=== PATIENT | male | born 1965 | race African-American/Black ===

== ENCOUNTER 2022-05-10 11:07 | Emergency (ER) | payer MEDICARE, MEDICAID ==
[~2022-05-10] VITALS: Ht 172.7 cm; Wt 124.8 kg
[2022-05-10] MEDS ORDERED: HOLD METFORMIN - RECEIVED CONTRAST 20 ML VIAL IV SCH (11:45)
[2022-05-10] MEDS ORDERED: NS 100 ML (IVPB) BAG IV ONE (11:45)
[2022-05-10] MEDS ORDERED: IOHEXOL 350 MG/ML 100 ML (OMNIPAQUE 350) VIAL IV ONE (11:45)
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
--- NOTE | 2022-05-10 12:33 | Diagnostic Imaging Report ---
Indication: Leg pain. 2 view left femur showed no fracture or bony destructive process. There is arthritis to the knee and hip. No articular collapse. Impression: Degenerative changes but no acute or posttraumatic femoral pathology apparent. Dictated by: Dictated on workstation # [id number]
--- NOTE | 2022-05-10 12:33 | Diagnostic Imaging Report ---
INDICATION: Leg pain. Two-view left tibia-fibula show no fracture, dislocation or acute bony irregularity. No gas or foreign body. IMPRESSION: No acute appearing abnormality. Dictated by: Dictated on workstation # [id number]
--- NOTE | 2022-05-10 12:42 | Diagnostic Imaging Report ---
INDICATION: foot pain. TECHNIQUE: 3 views of the left foot. CORRELATION STUDY: None. FINDINGS: There is no acute fracture. There are tjnwnlpk-ac-ewpvdefi degenerative changes at the first tarsometatarsal articulations which include joint space narrowing, flattening and loss of the normal contour as well as osteophyte formation. Remaining joint spaces are otherwise fairly well maintained. Pes planus alignment. Prominent plantar calcaneal spur. Asymmetric soft tissue edema over the medial aspect of the foot. IMPRESSION: 1. Negative for acute findings of the foot. Soft tissue edema is suggested medially. Dictated by: Dictated on workstation # [id number]
[2022-05-10 13:02] LABS: AMPHETAMINE SCREEN, URINE NEGATIVE (NEGATIVE); BARBITURATE SCREEN URINE NEGATIVE (NEGATIVE); BENZODIAZEPINES SCREEN URINE NEGATIVE (NEGATIVE); CANNABINOID SCREEN, URINE POSITIVE (NEGATIVE); COCAINE SCREEN URINE NEGATIVE (NEGATIVE); METHADONE STAT NEGATIVE (NEGATIVE); OPIATE SCREEN URINE NEGATIVE (NEGATIVE); OXYCODONE STAT POSITIVE (NEGATIVE); PROPOXYPHENE STAT NEGATIVE (NEGATIVE); TRICYCLIC ANTIDEPRESSANTS SCRE NEGATIVE (NEGATIVE)
[2022-05-10 13:05] LABS: BASOPHILS # (AUTO) 0.1 10^3/uL (0.0-0.1); BASOPHILS % (AUTO) 1 % (0-10); EOSINOPHILS # (AUTO) 0.1 10^3/uL (0.0-0.3); EOSINOPHILS % (AUTO) 2 % (0-10); HEMATOCRIT 42 % (40-54); HEMOGLOBIN 14.1 g/dL (13.3-17.7); LYMPHOCYTES # (AUTO) 2.2 10^3/uL (1.0-4.0); LYMPHOCYTES % (AUTO) 31 % (12-44); MEAN CORPUSCULAR HEMOGLOBIN 27 pg (25-34); MEAN CORPUSCULAR HGB CONC 33 g/dL (32-36); MEAN CORPUSCULAR VOLUME 82 fL (80-99); MEAN PLATELET VOLUME 10.3 fL (9.0-12.2); MONOCYTES # (AUTO) 0.7 10^3/uL (0.0-1.0); MONOCYTES % (AUTO) 10 % (0-12); NEUTROPHILS # (AUTO) 4.1 10^3/uL (1.8-7.8); NEUTROPHILS % (AUTO) 57 % (42-75); PLATELET COUNT 350 10^3/uL (130-400); WHITE BLOOD COUNT 7.2 10^3/uL (4.3-11.0)
[2022-05-10 13:23] LABS: ALANINE AMINOTRANSFERASE 18 U/L (0-55); ALBUMIN 3.8 GM/DL (3.2-4.5); ALKALINE PHOSPHATASE 69 U/L (40-136); BILIRUBIN,TOTAL 0.4 MG/DL (0.1-1.0); BUN/CREATININE RATIO 7; CALCIUM 9.2 MG/DL (8.5-10.1); CARBON DIOXIDE 21 MMOL/L (21-32); CHLORIDE 108 MMOL/L (98-107); CREATININE SERUM 1.16 MG/DL (0.60-1.30); GFR ESTIMATED 73; GLUCOSE 98 MG/DL (70-105); POTASSIUM 3.8 MMOL/L (3.6-5.0); SODIUM 139 MMOL/L (135-145); TOTAL PROTEIN 6.9 GM/DL (6.4-8.2)
[2022-05-10] MEDS ORDERED: KETOROLAC 30 MG/ML VIAL IVP ONE (14:00)
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
[2022-05-10 14:13] VITALS: BP 158/86
== END 2022-05-10 14:13 | disposition home or self-care (01) ==
LOC: EDBD 11:09 → ER 11:09
DX: M25.552 Pain in left hip (principal); M54.50 Low back pain, unspecified; M79.605 Pain in left leg; F17.210 Nicotine dependence, cigarettes, uncomplicated; Z28.310 Unvaccinated for COVID-19; V03.90XA Pedestrian on foot injured in collision with car, pick-up truck or van, unspecified whether traffic or nontraffic accident, initial encounter; Y92.481 Parking lot as the place of occurrence of the external cause
CPT/HCPCS: 70450; 71260; 72125; 73552; 73590; 73630; 74177; 80053; 80306; 85025; 99284; G0480; 36415; 80320

== ENCOUNTER 2022-06-05 06:48 | Emergency (ER) | payer MEDICARE, MEDICAID ==
[~2022-06-05] VITALS: Ht 175.3 cm; Wt 135.2 kg
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
[2022-06-05] MEDS ORDERED: methylPREDNISolone 40 MG/ML (DEPO MEDROL) VIAL IM ONE (07:30)
[2022-06-05] MEDS ORDERED: oxyCODONE/APAP 5/325MG (PERCOCET 5) TABLET PO ONE (07:30)
[2022-06-05] MEDS ORDERED: oxyCODONE/APAP 5/325MG (PERCOCET 5) TABLET ONE (08:00)
[2022-06-05 08:38] VITALS: BP 130/80
== END 2022-06-05 08:38 | disposition home or self-care (01) ==
LOC: EDUNIT# 06:48 → ER 06:49
DX: M54.42 Lumbago with sciatica, left side (principal); Z91.14 Patient's other noncompliance with medication regimen; Z79.1 Long term (current) use of non-steroidal anti-inflammatories (NSAID)
CPT/HCPCS: 99284

== ENCOUNTER 2022-06-17 01:22 | Emergency (ER) | payer MEDICARE, MEDICAID ==
[~2022-06-17] VITALS: Ht 175.3 cm; Wt 126.1 kg
[2022-06-17 01:44] LABS: BASOPHILS # (AUTO) 0.1 10^3/uL (0.0-0.1); BASOPHILS % (AUTO) 1 % (0-10); EOSINOPHILS # (AUTO) 0.1 10^3/uL (0.0-0.3); EOSINOPHILS % (AUTO) 1 % (0-10); HEMATOCRIT 42 % (40-54); HEMOGLOBIN 14.1 g/dL (13.3-17.7); LYMPHOCYTES # (AUTO) 3.1 10^3/uL (1.0-4.0); LYMPHOCYTES % (AUTO) 32 % (12-44); MEAN CORPUSCULAR HEMOGLOBIN 27 pg (25-34); MEAN CORPUSCULAR HGB CONC 33 g/dL (32-36); MEAN CORPUSCULAR VOLUME 82 fL (80-99); MEAN PLATELET VOLUME 9.8 fL (9.0-12.2); MONOCYTES # (AUTO) 0.7 10^3/uL (0.0-1.0); MONOCYTES % (AUTO) 7 % (0-12); NEUTROPHILS # (AUTO) 5.7 10^3/uL (1.8-7.8); NEUTROPHILS % (AUTO) 59 % (42-75); PLATELET COUNT 432 10^3/uL (130-400); WHITE BLOOD COUNT 9.7 10^3/uL (4.3-11.0)
--- NOTE | 2022-06-17 01:50 | ED General ---
General Chief Complaint: Exposure Stated Complaint: SOB,VOMITING Source of Information: Patient (DIFFICULT HISTORIAN AND SPEECH PATTERN DIFFICULT TO UNDERSTAND) History of Present Illness Date Seen by Provider: Jun 17, 2022 Time Seen by Provider: 01:24 Initial Comments PT ARRIVES VIA EMS FROM HOME STATES HE WAS CLEANING THE KITCHEN FOR ABOUT AN HOUR WITH BLEACH AND BREATHED IN THE FUMES THIS OCCURRED AROUND 8 PM TONIGHT STATES HE FEELS SHORT OF BREATH AND HE VOMITED TWICE NO OTHER SYMPTOMS NO COUGH NO DIARRHEA NO ABDOMINAL PAIN NO HEADACHE NO FEVER PT SMOKES 1 PPD OF CIGARETTES, ALSO SMOKES MARIJUANA DRINKS ALCOHOL OCCASIONALLY, DENIES RECENT USE. PT STATES HIS ONLY MEDICAL PROBLEM IS BACK PAIN PCP IN [place] Allergies and Home Medications Allergies Coded Allergies: No Allergy Information Available (Unverified , 05/10/22) Patient Home Medication List Home Medication List Reviewed: Yes Review of Systems Review of Systems Constitutional: no symptoms reported EENTM: no symptoms reported Respiratory: see HPI; No cough; short of breath Cardiovascular: no symptoms reported; No chest pain Gastrointestinal: see HPI; No abdominal pain, No diarrhea; nausea, vomiting Genitourinary: no symptoms reported Musculoskeletal: back pain (CHRONIC BACK PAIN UNCHANGED) Psychiatric/Neurological: No Symptoms Reported Hematologic/Lymphatic: No Symptoms Reported Immunological/Allergic: no symptoms reported Past Fmalftw-Prxsex-Srftaz Hx Patient Social History Tobacco Use?: Yes Tobacco type used: Cigarettes Smoking Status: Current Everyday Smoker Substance use?: Yes Substance type: Marijuana Substance frequency: Couple times a week Alcohol Use?: Yes Alcohol Frequency: Once in a while Immunizations Up To Date First/Initial COVID19 Vaccinat: 2020 Second COVID19 Vaccination Brayan: 2020 Third COVID19 Vaccination Date: N/A Past Medical History Surgeries: Yes (I&D OF ABSCESS ON BACK/BUTTOCKS) Respiratory: No Cardiac: Yes Hypertension Neurological: No Reproductive Disorders: No Genitourinary: No Gastrointestinal: No Musculoskeletal: Yes Chronic Back Pain Endocrine: Yes (OBESE) Diabetes, Non-Insulin dep HEENT: No Cancer: No Psychosocial: No Integumentary: Yes (I&D OF ABSCESS) Blood Disorders: No Physical Exam Vital Signs Vital Signs - First Documented 06/17/22 01:24 Temp 37.2 Pulse 100 Resp 20 B/P (MAP) 134/99 (111) Pulse Ox 96 O2 Delivery Room Air Capillary Refill : Height, Weight, BMI Height: '" Weight: lbs. oz. kg; 43.00 BMI Method: General Appearance: No Apparent Distress, WD/WN, Obese, Other (DOES NOT APPEAR TO BE IN ANY DISCOMFORT OR DISTRESS. NO COUGH OR DYSPNEA) HEENT: PERRL/EOMI Neck: Normal Inspection Respiratory: Normal Breath Sounds, No Accessory Muscle Use, No Respiratory Distress Cardiovascular: Regular Rate, Rhythm, No Edema, No Murmur Gastrointestinal: Non Tender, Soft Extremity: Normal Inspection, No Calf Tenderness, No Pedal Edema Neurologic/Psychiatric: Alert, Oriented x3, No Motor/Sensory Deficits, outside rigger II- XII Norm as Tested Skin: Normal Color (PT IS BLACK), Warm/Dry Progress/Results/Core Measures Suspected Sepsis SIRS Temperature: Pulse: Respiratory Rate: Laboratory Tests 06/17/22 01:32: White Blood Count 9.7 Blood Pressure / Mean: Laboratory Tests 06/17/22 01:32: Creatinine 1.23, Platelet Count 432H, Total Bilirubin 0.6 Results/Orders Lab Results Laboratory Tests Test 06/17/22 01:32 06/17/22 02:26 Range/Units White Blood Count 9.7 4.3-11.0 10^3/uL Red Blood Count 5.18 4.30-5.52 10^6/uL Hemoglobin 14.1 13.3-17.7 g/dL Hematocrit 42 40-54 % Mean Corpuscular Volume 82 80-99 fL Mean Corpuscular Hemoglobin 27 25-34 pg Mean Corpuscular Hemoglobin Concent 33 32-36 g/dL Red Cell Distribution Width 14.9 H 10.0-14.5 % Platelet Count 432 H 130-400 10^3/uL Mean Platelet Volume 9.8 9.0-12.2 fL Immature Granulocyte % (Auto) 0 % Neutrophils (%) (Auto) 59 42-75 % Lymphocytes (%) (Auto) 32 12-44 % Monocytes (%) (Auto) 7 0-12 % Eosinophils (%) (Auto) 1 0-10 % Basophils (%) (Auto) 1 0-10 % Neutrophils # (Auto) 5.7 1.8-7.8 10^3/uL Lymphocytes # (Auto) 3.1 1.0-4.0 10^3/uL Monocytes # (Auto) 0.7 0.0-1.0 10^3/uL Eosinophils # (Auto) 0.1 0.0-0.3 10^3/uL Basophils # (Auto) 0.1 0.0-0.1 10^3/uL Immature Granulocyte # (Auto) 0.0 0.0-0.1 10^3/uL Sodium Level 139 135-145 MMOL/L Potassium Level 3.6 3.6-5.0 MMOL/L Chloride Level 104 98-107 MMOL/L Carbon Dioxide Level 19 L 21-32 MMOL/L Anion Gap 16 H 5-14 MMOL/L Blood Urea Nitrogen 13 7-18 MG/DL Creatinine 1.23 0.60-1.30 MG/DL Estimat Glomerular Filtration Rate 70 BUN/Creatinine Ratio 11 Glucose Level 118 H 70-105 MG/DL Calcium Level 9.6 8.5-10.1 MG/DL Corrected Calcium 9.5 8.5-10.1 MG/DL Magnesium Level 1.7 1.6-2.4 MG/DL Total Bilirubin 0.6 0.1-1.0 MG/DL Aspartate Amino Transf (AST/SGOT) 21 5-34 U/L Alanine Aminotransferase (ALT/SGPT) 19 0-55 U/L Alkaline Phosphatase 70 40-136 U/L Troponin I < 0.028 <0.028 NG/ML B-Type Natriuretic Peptide < 10.0 <100.0 PG/ML Total Protein 7.7 6.4-8.2 GM/DL Albumin 4.1 3.2-4.5 GM/DL Amylase Level 66 25-125 U/L Lipase 12 8-78 U/L Serum Alcohol < 10 <10 MG/DL Influenza Type A (RT-PCR) Not Detected Not Detecte Influenza Type B (RT-PCR) Not Detected Not Detecte SARS-CoV-2 RNA (RT-PCR) Not Detected Not Detecte Urine Color YELLOW Urine Clarity CLEAR Urine pH 5.5 5-9 Urine Specific [place] 1.020 1.016-1.022 Urine Protein NEGATIVE NEGATIVE Urine Glucose (UA) NEGATIVE NEGATIVE Urine Ketones NEGATIVE NEGATIVE Urine Nitrite NEGATIVE NEGATIVE Urine Bilirubin NEGATIVE NEGATIVE Urine Urobilinogen 0.2 < = 1.0 MG/DL Urine Leukocyte Esterase NEGATIVE NEGATIVE Urine RBC (Auto) NEGATIVE NEGATIVE Urine RBC NONE /HPF Urine WBC NONE /HPF Urine Crystals NONE /LPF Urine Bacteria NEGATIVE /HPF Urine Casts NONE /LPF Urine Mucus NEGATIVE /LPF Urine Culture Indicated NO My Orders Orders - ALISON AGUIRRE DO Ed Iv/Invasive Line Start (06/17/22 01:37) Ekg Tracing (06/17/22 01:37) Monitor-Rhythm Ecg Trace Only (06/17/22 01:37) Alcohol (06/17/22 01:37) Amylase (06/17/22 01:37) Bnp Diane (06/17/22 01:37) Cbc With Automated Diff (06/17/22 01:37) Comprehensive Metabolic Panel (06/17/22 01:37) Drug Screen Stat (Urine) (06/17/22 01:37) Lipase (06/17/22 01:37) Magnesium (06/17/22 01:37) Ua Culture If Indicated (06/17/22 01:37) Troponin I Diane (06/17/22 01:37) Covid 19 Inhouse Test (06/17/22 01:38) Influenza A And B By Pcr (06/17/22 01:38) Isolation Central Supply Req (06/17/22 01:38) Chest 1 View, Ap/Pa Only (06/17/22 01:39) Vital Signs/I&O 06/17/22 01:24 Temp 37.2 Pulse 100 Resp 20 B/P (MAP) 134/99 (111) Pulse Ox 96 O2 Delivery Room Air Capillary Refill : Progress Note : Progress Note NO COUGH NO DYSPNEA NO HYPOXIA NO GI SYMPTOMS VITALS STABLE NO SYMPTOMS OF ANY KIND DURING ER STAY SLEPT/RESTED QUIETLY FOR ENTIRE ER STAY ECG Initial ECG Impression Date: Jun 17, 2022 Initial ECG Impression Time: 02:07 Initial ECG Rate: 92 Initial ECG Rhythm: Normal Sinus Comment ATRIAL PACED Diagnostic Imaging Comments CXR--VERY POOR INSPIRATION, NON-DIAGNOSTIC. PENDING RADIOLOGIST REVIEW Reviewed: Reviewed by Me Departure Impression Primary Impression: ALLEGED BLEACH FUME EXPOSURE Disposition: HOME, SELF-CARE Condition: Stable Departure-Patient Inst. Decision time for Depature: 02:30 Referrals: NO,LOCAL PHYSICIAN (PCP) Primary Care Physician Patient Instructions: ACCIDENTAL INGESTION NON-TOXIC Add. Discharge Instructions: HOME, REST TAKE YOUR REGULAR MEDICATIONS PRESCRIBED AVOID BEING EXPOSED TO ANY KIND OF FUMES FOR ANY LENGTH OF TIME RETURN TO ER IF PROBLEMS All discharge instructions reviewed with patient and/or family. Voiced understanding. ALISON AGUIRRE DO Jun 17, 2022 01:50
[2022-06-17 01:53] LABS: ALBUMIN 4.1 GM/DL (3.2-4.5); CHLORIDE 104 MMOL/L (98-107); POTASSIUM 3.6 MMOL/L (3.6-5.0); SODIUM 139 MMOL/L (135-145)
[2022-06-17 01:54] LABS: AMYLASE 66 U/L (25-125); CALCIUM 9.6 MG/DL (8.5-10.1)
[2022-06-17 01:55] LABS: GLUCOSE 118 MG/DL (70-105); TOTAL PROTEIN 7.7 GM/DL (6.4-8.2)
[2022-06-17 01:56] LABS: CARBON DIOXIDE 19 MMOL/L (21-32)
[2022-06-17 01:57] LABS: BILIRUBIN,TOTAL 0.6 MG/DL (0.1-1.0)
[2022-06-17 01:58] LABS: ALKALINE PHOSPHATASE 70 U/L (40-136)
[2022-06-17 01:59] LABS: CREATININE SERUM 1.23 MG/DL (0.60-1.30); GFR ESTIMATED 70
[2022-06-17 02:00] LABS: BUN/CREATININE RATIO 11
[2022-06-17 02:01] LABS: MAGNESIUM 1.7 MG/DL (1.6-2.4)
[2022-06-17 02:02] LABS: ALANINE AMINOTRANSFERASE 19 U/L (0-55); LIPASE 12 U/L (8-78)
[2022-06-17 02:31] LABS: BILIRUBIN,URINE NEGATIVE (NEGATIVE); CLARITY,URINE CLEAR; COLOR,URINE YELLOW; GLUCOSE, URINE (UA) NEGATIVE (NEGATIVE); KETONES,URINE NEGATIVE (NEGATIVE); LEUKOCYTE ESTERASE ,URINE NEGATIVE (NEGATIVE); NITRITE,URINE NEGATIVE (NEGATIVE); PH,URINE 5.5 (5-9); PROTEIN,URINE NEGATIVE (NEGATIVE)
[2022-06-17 02:41] LABS: BACTERIA,URINE NEGATIVE /HPF
[2022-06-17 02:51] LABS: AMPHETAMINE SCREEN, URINE NEGATIVE (NEGATIVE); BARBITURATE SCREEN URINE NEGATIVE (NEGATIVE); BENZODIAZEPINES SCREEN URINE NEGATIVE (NEGATIVE); CANNABINOID SCREEN, URINE POSITIVE (NEGATIVE); COCAINE SCREEN URINE NEGATIVE (NEGATIVE); METHADONE STAT NEGATIVE (NEGATIVE); OPIATE SCREEN URINE NEGATIVE (NEGATIVE); OXYCODONE STAT POSITIVE (NEGATIVE); PROPOXYPHENE STAT NEGATIVE (NEGATIVE); TRICYCLIC ANTIDEPRESSANTS SCRE NEGATIVE (NEGATIVE)
[2022-06-17 03:00] VITALS: BP 126/79
--- NOTE | 2022-06-17 06:03 | Diagnostic Imaging Report ---
EXAMINATION: Chest 1 view HISTORY: DYSPNEA COMPARISON: None available. FINDINGS: Heart size and pulmonary vasculature are normal. There are low lung volumes without consolidation, pleural effusion, or pneumothorax. The osseous structures are intact. IMPRESSION: 1. No acute radiographic abnormality in the chest. Dictated by: Dictated on workstation # [id number]
== END 2022-06-17 03:00 | disposition home or self-care (01) ==
LOC: EDUNIT# 01:22 → ER 01:23
DX: T59.4X1A Toxic effect of chlorine gas, accidental (unintentional), initial encounter (principal); E66.9 Obesity, unspecified; F17.210 Nicotine dependence, cigarettes, uncomplicated; Z68.41 Body mass index [BMI] 40.0-44.9, adult; Z20.822 Contact with and (suspected) exposure to COVID-19
CPT/HCPCS: 71045; 80053; 80306; 81000; 82150; 83690; 83735; 83880; 84484; 85025; 87636; 93005; 93041; 99284; G0480; 36415; 80320

== ENCOUNTER 2022-07-01 09:08 | Emergency (ER) | payer MEDICARE, MEDICAID ==
[~2022-07-01] VITALS: Ht 175 cm; Wt 124.7 kg
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
[2022-07-01] MEDS ORDERED: oxyCODONE/APAP 5/325MG (PERCOCET 5) TABLET PO ONE ×2 (10:00→11:00)
--- NOTE | 2022-07-01 10:16 | Diagnostic Imaging Report ---
PROCEDURE: CT thoracic and lumbar spine without contrast. TECHNIQUE: Multiple contiguous axial images were obtained through the thoracic and lumbar spine without the use of intravenous contrast. Sagittal and coronal reformations were then performed. All CT scans use one or more of the following dose optimizing techniques: automated exposure control, MA and/or KvP adjustment based on a patient size and exam type, or iterative reconstruction. INDICATION: Back pain as well as left hip and leg pain. CT thoracic spine: There is normal thoracic kyphotic curvature. There is very slight right convexity scoliotic curvature. Vertebral body heights are well-maintained. No acute compression fracture is seen. There is some mild generalized thoracic spondylosis. Paraspinous tissues are unremarkable. CT lumbar spine: Curvature and alignment of the lumbar spine is normal. There is degenerative disc disease L4-L5 and L5-S1 levels, with disc space narrowing and marginal osteophyte formation. No fractures are seen. Paraspinous tissues are unremarkable. IMPRESSION: Lower lumbar spondylosis. No acute bony abnormality is detected. Dictated by: Dictated on workstation # [id number]
[2022-07-01] MEDS ORDERED: methylPREDNISolone 40 MG/ML (DEPO MEDROL) VIAL IM ONE (10:30)
[2022-07-01 11:19] VITALS: BP 112/69
== END 2022-07-01 11:19 | disposition home or self-care (01) ==
LOC: EDUNIT# 09:08 → ER 09:09
DX: M54.41 Lumbago with sciatica, right side (principal); E66.9 Obesity, unspecified; Z68.41 Body mass index [BMI] 40.0-44.9, adult
CPT/HCPCS: 72128; 72131; 96372

== ENCOUNTER 2022-08-24 18:44 | Emergency (ER) | payer MEDICARE, MEDICAID ==
[~2022-08-24] VITALS: Ht 175 cm; Wt 124.0 kg
[2022-08-24 19:05] LABS: BASOPHILS % (AUTO) 1 % (0-10); EOSINOPHILS # (AUTO) 0.2 10^3/uL (0.0-0.3); EOSINOPHILS % (AUTO) 3 % (0-10); HEMATOCRIT 42 % (40-54); LYMPHOCYTES # (AUTO) 2.3 10^3/uL (1.0-4.0); LYMPHOCYTES % (AUTO) 35 % (12-44); MEAN CORPUSCULAR HEMOGLOBIN 28 pg (25-34); MEAN CORPUSCULAR HGB CONC 34 g/dL (32-36); MEAN CORPUSCULAR VOLUME 82 fL (80-99); MEAN PLATELET VOLUME 10.1 fL (9.0-12.2); MONOCYTES # (AUTO) 1.2 10^3/uL (0.0-1.0); MONOCYTES % (AUTO) 19 % (0-12); NEUTROPHILS # (AUTO) 2.8 10^3/uL (1.8-7.8); NEUTROPHILS % (AUTO) 43 % (42-75); PLATELET COUNT 402 10^3/uL (130-400); WHITE BLOOD COUNT 6.5 10^3/uL (4.3-11.0)
--- NOTE | 2022-08-24 19:13 | Diagnostic Imaging Report ---
EXAMINATION: Chest 1 view. HISTORY: Shortness of breath. Cough. COMPARISON: 06/17/2022. FINDINGS: There is cardiomegaly with central pulmonary vascular congestion. No focal consolidation. No large pleural effusion or pneumothorax. IMPRESSION: Cardiomegaly with central pulmonary vascular congestion. Dictated by: Dictated on workstation # [id number]
[2022-08-24 19:21] LABS: ALBUMIN 3.8 GM/DL (3.2-4.5); BILIRUBIN,TOTAL 0.3 MG/DL (0.1-1.0); CREATININE SERUM 1.05 MG/DL (0.60-1.30); TOTAL PROTEIN 7.3 GM/DL (6.4-8.2)
[2022-08-24] MEDS ORDERED: BENZONATATE 100 MG (TESSALON) CAPSULE PO SCH (21:15)
[2022-08-24] MEDS ORDERED: BENZ100C18 PO ×2 (21:21→21:34)
--- NOTE | 2022-08-24 21:21 | ED General ---
General Chief Complaint: Respiratory Problems Stated Complaint: CHEST CONGESTION/COUGH/SOA/ASTHMA Nursing Triage Note: PT CO OF SOA, DENIES FEVER, COUGH STARTED 2 DAYS AGO. Source of Information: Patient Exam Limitations: No Limitations (BENITO MADDEN APRN) History of Present Illness Date Seen by Provider: Aug 24, 2022 Time Seen by Provider: 19:00 Initial Comments Patient is a 52-year-old male who presents to the emergency department with shortness of air, cough, general malaise, body aches, and headache that began 2 days ago. Patient denies any known sick contacts. Patient states he has a history of COPD. He has an inhaler he has been using at home with minimal improvement. Denies any fever. States his cough is productive with white/yellow sputum. (BENITO MADDEN APRN) Allergies and Home Medications Allergies Coded Allergies: No Known Drug Allergies (Unverified , 08/24/22) Patient Home Medication List Home Medication List Reviewed: Yes (BENITO MADDEN APRN) Benzonatate (Tessalon Perles) 100 Mg Capsule, 200 MG PO Q8H Prescribed by: Benito Madden on 08/24/222133 Last Action: New Order Discontinued Medications Benzonatate (Tessalon Perles) 100 Mg Capsule, 200 MG PO Q8H PRN for COUGH Prescribed by: Benito Madden on 08/24/222120 Last Action: Discontinued Review of Systems Review of Systems Constitutional: see HPI, malaise EENTM: no symptoms reported Respiratory: see HPI, cough Cardiovascular: no symptoms reported Gastrointestinal: no symptoms reported Genitourinary: no symptoms reported Musculoskeletal: no symptoms reported Skin: no symptoms reported Psychiatric/Neurological: No Symptoms Reported Hematologic/Lymphatic: No Symptoms Reported (BENITO MADDEN APRN) Past Dgizcdm-Dxzcba-Nyvyqq Hx Patient Social History Tobacco Use?: Yes Tobacco type used: Cigarettes Smoking Status: Current Everyday Smoker Substance use?: Yes Substance type: Marijuana Substance frequency: Rarely Alcohol Use?: No Pt feels they are or have been: No (BENITO MADDEN APRN) Immunizations Up To Date Influenza Vaccine Up-to-Date: Yes; Up-to-Date First/Initial COVID19 Vaccinat: 2020 Second COVID19 Vaccination Brayan: 2020 Third COVID19 Vaccination Date: N/A (BENITO MADDEN APRN) Past Medical History Surgery/Hospitalization HX: back pain, dm, copd Surgeries: Yes (I&D OF ABSCESS ON BACK/BUTTOCKS) Respiratory: No Cardiac: Yes Hypertension Neurological: No Reproductive Disorders: No Genitourinary: No Gastrointestinal: No Musculoskeletal: Yes Chronic Back Pain Endocrine: Yes (OBESE) Diabetes, Non-Insulin dep HEENT: No Cancer: No Psychosocial: No Integumentary: Yes (I&D OF ABSCESS) Blood Disorders: No (BENITO MADDEN APRN) Physical Exam Vital Signs Vital Signs - First Documented 08/24/22 08/24/22 18:50 21:26 Temp 36.0 Pulse 102 Resp 18 B/P (MAP) 138/70 (92) Pulse Ox 96 O2 Delivery Room Air (CARLA,ALISON K DO) Vital Signs Capillary Refill : Less Than 3 Seconds (BENITO MADDEN APRN) Height, Weight, BMI Height: '" Weight: lbs. oz. 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 Skin: Normal Color, Warm/Dry Lymphatic: No Adenopathy (BENITO MADDEN APRN) Progress/Results/Core Measures Suspected Sepsis SIRS Temperature: Pulse: 102 Respiratory Rate: 18 Laboratory Tests 08/24/22 18:54: White Blood Count 6.5 Blood Pressure 138 /70 Mean: 92 Laboratory Tests 08/24/22 18:54: Creatinine 1.05, Platelet Count 402H, Total Bilirubin 0.3 (BENITO MADDEN APRN) Results/Orders Lab Results Laboratory Tests Test 08/24/22 18:54 08/24/22 20:01 Range/Units White Blood Count 6.5 4.3-11.0 10^3/uL Red Blood Count 5.06 4.30-5.52 10^6/uL Hemoglobin 14.0 13.3-17.7 g/dL Hematocrit 42 40-54 % Mean Corpuscular Volume 82 80-99 fL Mean Corpuscular Hemoglobin 28 25-34 pg Mean Corpuscular Hemoglobin Concent 34 32-36 g/dL Red Cell Distribution Width 15.6 H 10.0-14.5 % Platelet Count 402 H 130-400 10^3/uL Mean Platelet Volume 10.1 9.0-12.2 fL Immature Granulocyte % (Auto) 0 % Neutrophils (%) (Auto) 43 42-75 % Lymphocytes (%) (Auto) 35 12-44 % Monocytes (%) (Auto) 19 H 0-12 % Eosinophils (%) (Auto) 3 0-10 % Basophils (%) (Auto) 1 0-10 % Neutrophils # (Auto) 2.8 1.8-7.8 10^3/uL Lymphocytes # (Auto) 2.3 1.0-4.0 10^3/uL Monocytes # (Auto) 1.2 H 0.0-1.0 10^3/uL Eosinophils # (Auto) 0.2 0.0-0.3 10^3/uL Basophils # (Auto) 0.0 0.0-0.1 10^3/uL Immature Granulocyte # (Auto) 0.0 0.0-0.1 10^3/uL Sodium Level 140 135-145 MMOL/L Potassium Level 4.0 3.6-5.0 MMOL/L Chloride Level 106 98-107 MMOL/L Carbon Dioxide Level 22 21-32 MMOL/L Anion Gap 12 5-14 MMOL/L Blood Urea Nitrogen 6 L 7-18 MG/DL Creatinine 1.05 0.60-1.30 MG/DL Estimat Glomerular Filtration Rate 85 BUN/Creatinine Ratio 6 Glucose Level 99 70-105 MG/DL Calcium Level 9.0 8.5-10.1 MG/DL Corrected Calcium 9.2 8.5-10.1 MG/DL Total Bilirubin 0.3 0.1-1.0 MG/DL Aspartate Amino Transf (AST/SGOT) 20 5-34 U/L Alanine Aminotransferase (ALT/SGPT) 13 0-55 U/L Alkaline Phosphatase 64 40-136 U/L Total Protein 7.3 6.4-8.2 GM/DL Albumin 3.8 3.2-4.5 GM/DL Influenza Type A (RT-PCR) Not Detected Not Detecte Influenza Type B (RT-PCR) Not Detected Not Detecte SARS-CoV-2 RNA (RT-PCR) Not Detected Not Detecte (ALISON AGUIRRE DO) Vital Signs/I&O 08/24/22 08/24/22 18:50 21:26 Temp 36.0 36.0 Pulse 102 89 Resp 18 18 B/P (MAP) 138/70 (92) 138/91 Pulse Ox 96 97 O2 Delivery Room Air (ALISON AGUIRRE DO) Vital Signs/I&O Capillary Refill : Less Than 3 Seconds (BENITO MADDEN APRN) Blood Pressure Mean: 92 Progress Note : Progress Note Patient is nontoxic and well-hydrated on exam. No adventitious lung sounds or increased work of breathing noted. Vital signs are reassuring without hypoxia. No nuchal rigidity noted. Patient ambulatory to the room without issue. He is awake alert answers all questions appropriately. Chest x-ray acutely negative. Laboratory evaluation largely unremarkable. COVID and flu tests negative. I am not convinced that patient does not have influenza given high rate of false negative with rapid influenza test. No obvious nidus of bacterial infection noted on exam or work-up. Discussed supportive care anticipatory guidance. Follow-up with PCP. Return precautions for symptomology discussed. Patient v erbalized understanding. (BENITO MADDEN APRN) Departure Impression Primary Impression: Acute viral syndrome Disposition: 01 HOME, SELF-CARE Condition: Stable Departure-Patient Inst. Decision time for Depature: 21:20 (BENITO MADDEN APRN) Referrals: NO,LOCAL PHYSICIAN (PCP/Family) Primary Care Physician Patient Instructions: Viral Syndrome (DC) Scripts Benzonatate (TESSALON PERLES) 100 Mg Capsule 200 MG PO Q8H, #25 CAP Prov: BENITO MADDEN APRN 08/24/22 ATTENDING PHYSICIAN NOTE: I WAS PHYSICALLY PRESENT ER PHYSICIAN, BUT I WAS NOT INVOLVED IN ANY DECISION MAKING OR ANY CARE OF THIS PATIENT, AND I AM NOT COLLABORATING PHYSICIAN. (ALISON AGUIRRE DO) BENITO MADDEN APRN Aug 24, 2022 21:21 ALISON AGUIRRE DO Aug 27, 2022 02:29
[2022-08-24 21:26] VITALS: BP 138/91
== END 2022-08-24 21:26 | disposition home or self-care (01) ==
LOC: EDUNIT# 18:44 → ER 18:47
DX: R05.9 Cough, unspecified (principal); R53.81 Other malaise; R06.02 Shortness of breath; R51.9 Headache, unspecified; B34.9 Viral infection, unspecified; J44.9 Chronic obstructive pulmonary disease, unspecified; F17.210 Nicotine dependence, cigarettes, uncomplicated; Z20.822 Contact with and (suspected) exposure to COVID-19
CPT/HCPCS: 36415; 71045; 80053; 85025; 87636; 99285

== ENCOUNTER 2022-08-29 01:37 | Emergency (ER) | payer MEDICARE, MEDICAID ==
[~2022-08-29] VITALS: Ht 175.3 cm; Wt 124.7 kg
[~2022-08-29 01:37] MED LIST: BENZ100C18 PO
[2022-08-29] MEDS ORDERED: BENZONATATE 100 MG (TESSALON) CAPSULE PO STA (02:36)
[2022-08-29] MEDS ORDERED: oxyCODONE/APAP 5/325MG (PERCOCET 5) TABLET PO ONE (02:45)
[2022-08-29] MEDS ORDERED: BENZ100C18 PO (03:08)
[2022-08-29] MEDS ORDERED: AZIT250T12 PO (03:08)
--- NOTE | 2022-08-29 03:09 | ED General ---
General Chief Complaint: General Problems/Pain Stated Complaint: SOB Nursing Triage Note: PT AMB TO RM 9 W C/O COUGH AND SOA SX 08/24/22. PT REPORTS COUGH IS NOW CAUSING BACK PAIN, A&OX4. Source of Information: Patient Exam Limitations: No Limitations History of Present Illness Date Seen by Provider: Aug 29, 2022 Allergies and Home Medications Allergies Coded Allergies: No Known Drug Allergies (Unverified , 08/24/22) Patient Home Medication List Azithromycin (Azithromycin) 250 Mg Tablet, 250 MG PO UD Prescribed by: STEPHANIE WALLACE on 08/29/22 030 Benzonatate (Tessalon Perles) 100 Mg Capsule, 200 MG PO Q8H Prescribed by: Benito Madden on 08/24/222133 Benzonatate (Tessalon Perles) 100 Mg Capsule, 200 MG PO TID PRN for COUGH Prescribed by: STEPHANIE WALLACE on 08/29/22307 Discontinued Medications Benzonatate (Tessalon Perles) 100 Mg Capsule, 200 MG PO Q8H PRN for COUGH Prescribed by: Benito Madden on 08/24/222120 Past Toshljn-Yilhje-Lhglrv Hx Patient Social History Tobacco Use?: Yes Tobacco type used: Cigarettes Smoking Status: Current Everyday Smoker Use of E-Cig and/or Vaping dev: No Substance use?: Yes Substance type: Marijuana Alcohol Use?: No Immunizations Up To Date Influenza Vaccine Up-to-Date: No; Not Current First/Initial COVID19 Vaccinat: 2020 Second COVID19 Vaccination Brayan: 2020 Third COVID19 Vaccination Date: N/A 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: [employer] Past Medical History Surgery/Hospitalization HX: back pain, dm, copd Surgeries: Yes (I&D OF ABSCESS ON BACK/BUTTOCKS) Respiratory: No Cardiac: Yes Hypertension Neurological: No Reproductive Disorders: No Genitourinary: No Gastrointestinal: No Musculoskeletal: Yes Chronic Back Pain Endocrine: Yes (OBESE) Diabetes, Non-Insulin dep HEENT: No Cancer: No Psychosocial: No Integumentary: Yes (I&D OF ABSCESS) Blood Disorders: No Physical Exam Vital Signs Vital Signs - First Documented 08/29/22 01:46 Temp 36.4 Pulse 92 Resp 22 B/P (MAP) 146/81 (102) Pulse Ox 97 O2 Delivery Room Air Capillary Refill : Less Than 3 Seconds Height, Weight, BMI Height: '" Weight: lbs. oz. kg; 40.00 BMI Method: Progress/Results/Core Measures Suspected Sepsis SIRS Temperature: Pulse: 92 Respiratory Rate: 22 Blood Pressure 146 /81 Mean: 102 Results/Orders Lab Results Laboratory Tests Test 08/29/22 01:59 Range/Units Influenza Type A (RT-PCR) Not Detected Not Detecte Influenza Type B (RT-PCR) Not Detected Not Detecte SARS-CoV-2 RNA (RT-PCR) Not Detected Not Detecte My Orders Orders - STEPHANIE CHAVEZ MD Influenza A And B By Pcr (08/29/22 01:56) Covid 19 Inhouse Test (08/29/22 01:56) Oxycodone/Apap 5/325mg Tablet (Percocet (08/29/22 02:45) Benzonatate Capsule (Tessalon Perles) (08/29/22 02:36) Medications Given in ED Current Medications Medications Dose Ordered Sig/Jacob Route Start Time Stop Time Status Last Admin Dose Admin Oxycodone/ Acetaminophen 2 tab ONCE ONCE PO 08/29/22 02:45 08/29/22 02:46 DC 08/29/22 02:48 2 TAB Vital Signs/I&O 08/29/22 01:46 Temp 36.4 Pulse 92 Resp 22 B/P (MAP) 146/81 (102) Pulse Ox 97 O2 Delivery Room Air Capillary Refill : Less Than 3 Seconds Blood Pressure Mean: 102 Departure Impression Primary Impression: Acute viral syndrome Additional Impressions: COPD exacerbation Chronic pain Qualified Codes: G89.29 - Other chronic pain Disposition: 01 HOME, SELF-CARE Condition: Improved Departure-Patient Inst. Decision time for Depature: 03:05 Referrals: NO,LOCAL PHYSICIAN (PCP/Family) Primary Care Physician Patient Instructions: COPD Exacerbation, Adult ED Add. Discharge Instructions: Your flu and COVID tests were negative. Continue to use your inhaled medications as prescribed. You may use the Tessalon Perles as prescribed for cough suppression. Complete azithromycin as prescribed for your COPD exacerbation. Work toward quitting smoking as fast as possible. You will need to contact your usual prescriber for renewal of your chronic pain medications. Follow-up with your primary care provider as soon as possible. All discharge instructions reviewed with patient and/or family. Voiced understanding. Scripts Benzonatate (TESSALON PERLES) 100 Mg Capsule 200 MG PO TID PRN for COUGH, #20 CAP Prov: STEPHANIE CHAVEZ MD 08/29/22 Azithromycin (Azithromycin) 250 Mg Tablet 250 MG PO UD, #6 TAB TAKE 2 TABLETS ON DAY ONE THEN TAKE 1 TABLET DAILY FOR FOUR MORE DAYS Prov: STEPHANIE CHAVEZ MD 08/29/22 STEPHANIE CHAVEZ MD Aug 29, 2022 03:09
[2022-08-29 03:30] VITALS: BP 151/89
== END 2022-08-29 03:30 | disposition home or self-care (01) ==
LOC: EDUNIT# 01:37 → ER 01:41
DX: B34.9 Viral infection, unspecified (principal); J44.1 Chronic obstructive pulmonary disease with (acute) exacerbation; G89.29 Other chronic pain; F17.210 Nicotine dependence, cigarettes, uncomplicated; E66.9 Obesity, unspecified; Z68.41 Body mass index [BMI] 40.0-44.9, adult; Z20.822 Contact with and (suspected) exposure to COVID-19
CPT/HCPCS: 87636; 99283

== ENCOUNTER 2022-09-23 05:53 | Emergency (ER) | payer MEDICARE, MEDICAID ==
[~2022-09-23] VITALS: Ht 175.2 cm; Wt 129.2 kg
[~2022-09-23 05:53] MED LIST changes: +AZIT250T12 PO
[2022-09-23 06:05] VITALS: BP 147/108
--- NOTE | 2022-09-23 06:27 | ED Back Pain ---
General Chief Complaint: Back Problems Stated Complaint: BACK PAIN Nursing Triage Note: PT AMB TO RM 8 WITH CC OF LOWER BACK PAIN. PT REPORTS HAS CHRONIC BACK PAIN BUT INCREASED THIS AM AROUND 0100. USUALLY TAKES OXYCODONE FOR PAIN NONE TAKEN THIS AM Source of Information: Patient Exam Limitations: No Limitations History of Present Illness Date Seen by Provider: Sep 23, 2022 Time Seen by Provider: 06:15 Initial Comments 52-year-old male presents emergency department today for right low back pain. He states "this happens all the time." Symptoms started about 1:00 last night and have been progressive. Its dull throbbing without radiation. Aggravated by twisting or walking, relieved somewhat by rest. He has not tried anything for his symptoms. He states he usually takes oxycodone for his pain but has not taken any this morning. He denies fevers chills. No urinary symptoms. No loss of bowel or bladder control. No lower extremity weakness numbness or tingling. Allergies and Home Medications Allergies Coded Allergies: No Known Drug Allergies (Unverified , 08/24/22) Patient Home Medication List Home Medication List Reviewed: Yes Azithromycin (Azithromycin) 250 Mg Tablet, 250 MG PO UD Prescribed by: STEPHANIE WALLACE on 08/29/22 0308 Benzonatate (Tessalon Perles) 100 Mg Capsule, 200 MG PO Q8H Prescribed by: Benito Madden on 08/24/22 2134 Benzonatate (Tessalon Perles) 100 Mg Capsule, 200 MG PO TID PRN for COUGH Prescribed by: STEPHANIE WALLACE on 08/29/22 0308 Review of Systems Constitutional: no symptoms reported EENTM: no symptoms reported Respiratory: no symptoms reported Cardiovascular: no symptoms reported Gastrointestinal: no symptoms reported Genitourinary: no symptoms reported Musculoskeletal: back pain Skin: no symptoms reported Psychiatric/Neurological: No Symptoms Reported Past Nrvxrus-Svdblu-Jhgxap Hx Patient Social History Tobacco Use?: Yes Tobacco type used: Cigarettes Smoking Status: Current Everyday Smoker Substance use?: No Alcohol Use?: No Pt feels they are or have been: No Immunizations Up To Date Influenza Vaccine Up-to-Date: No; Not Current First/Initial COVID19 Vaccinat: 2020 Second COVID19 Vaccination Brayan: 2020 Third COVID19 Vaccination Date: N/A Past Medical History Surgery/Hospitalization HX: back pain, dm, copd Surgeries: Yes (I&D OF ABSCESS ON BACK/BUTTOCKS) Respiratory: No Cardiac: Yes Hypertension Neurological: No Reproductive Disorders: No Genitourinary: No Gastrointestinal: No Musculoskeletal: Yes Chronic Back Pain Endocrine: Yes (OBESE) Diabetes, Non-Insulin dep HEENT: No Cancer: No Psychosocial: No Integumentary: Yes (I&D OF ABSCESS) Blood Disorders: No Family Medical History Reviewed Nursing Family Hx No Pertinent Family Hx Physical Exam Vital Signs Vital Signs - First Documented 09/23/22 06:05 Temp 36.4 Pulse 99 Resp 16 B/P (MAP) 147/108 (121) Pulse Ox 97 Capillary Refill : Less Than 3 Seconds Height, Weight, BMI Height: '" Weight: lbs. oz. kg; 42.00 BMI Method: General Appearance: No Apparent Distress HEENT: Normal ENT Inspection, Pharynx Normal Neck: Normal Inspection, Non Tender, Supple Cardiovascular: Regular Rate, Rhythm, No Murmur, Normal Peripheral Pulses Respiratory: Chest Non Tender, Lungs Clear, Normal Breath Sounds, No Accessory Muscle Use, No Respiratory Distress Gastrointestinal: Normal Bowel Sounds, No Organomegaly, Non Tender, Soft Back: Normal Inspection, No CVA Tenderness, Other (Tenderness palpation right lateral paraspinal and lumbar musculature. No skin changes. No CVA tendern ess.) Neurologic/Psychiatric: Alert, Oriented x3, No Motor/Sensory Deficits, Normal Mood/Affect Skin: Normal Color, Warm/Dry Lymphatic: No Adenopathy Progress/Results/Core Measures Results/Orders Vital Signs/I&O 09/23/22 06:05 Temp 36.4 Pulse 99 Resp 16 B/P (MAP) 147/108 (121) Pulse Ox 97 Blood Pressure Mean: 121 Departure Communication (Admissions) Patient is hemodynamically stable. He did allow me to examine him prior to leaving [facility] he has what is clearly musculoskeletal pain upon exam without any red flag symptoms. At the end of the exam I told him I would give him a shot of Toradol and some muscle relaxers. He states "that shit do not work I need something strong." I advised him I was unwilling to give him narcotic pain medication for his chronic symptoms. He states "that is the only reason I am here because it would let me sleep." I advised him the muscle lectures would likely make him tired and allow him to sleep. He states "I do not want any of that shit." I again advised that I did not think narcotic pain medications were appropriate for his condition and likely to be habit-forming. He with his monitoring equipment and storms out of the emergency department angry. I did advise him that he could come back for reevaluation at any time should his symptoms change. He does leave before I could provide him discharge instructions. Impression Primary Impression: Chronic back pain Qualified Codes: M54.50 - Low back pain, unspecified; G89.29 - Other chronic pain Additional Impression: Drug-seeking behavior Disposition: 07 AGAINST MEDICAL ADVICE Condition: Against Medical Advice Departure-Patient Inst. Referrals: NO,LOCAL PHYSICIAN (PCP/Family) Primary Care Physician PAVAN HERNANDEZ DO Sep 23, 2022 06:27
== END 2022-09-23 06:27 | disposition left against medical advice (07) ==
LOC: EDUNIT# 05:53 → ER 05:57
DX: M54.50 Low back pain, unspecified (principal); G89.29 Other chronic pain; Z76.5 Malingerer [conscious simulation]; F17.210 Nicotine dependence, cigarettes, uncomplicated
CPT/HCPCS: 99281

== ENCOUNTER 2023-01-02 19:15 | Emergency (ER) | payer MEDICARE, MEDICAID ==
[~2023-01-02] VITALS: Ht 175.3 cm; Wt 132.2 kg
[2023-01-02] MEDS ORDERED: OXYC-525 (19:28)
[2023-01-02] MEDS ORDERED: METF-398 (19:28)
[2023-01-02] MEDS ORDERED: ALBUTEROL (19:28)
[2023-01-02] MEDS ORDERED: DULA3PEN (19:28)
[2023-01-02] MEDS ORDERED: TOPI-241 (19:28)
[2023-01-02] MEDS ORDERED: OXYC20TA3 (19:28)
[2023-01-02] MEDS ORDERED: MELO15TA39 (19:28)
[2023-01-02] MEDS ORDERED: PREG150C46 (19:28)
[2023-01-02] MEDS ORDERED: AMLO2.5T4 (19:28)
--- NOTE | 2023-01-02 19:40 | ED Upper Extremity ---
General Chief Complaint: Abdominal/GI Problems Stated Complaint: CRAMPING IN HANDS Nursing Triage Note: C/O RIGHT HAND, ABDOMINAL CRAMPING SINCE THIS AFTERNOON APPROX. 2HRS AFTER LIFTING HEAVY BAGS Source: patient Exam Limitations: no limitations History of Present Illness Date Seen by Provider: Jan 02, 2023 Time Seen by Provider: 19:30 Initial Comments 53-year-old male presents to the ED with complaint of right hand cramping this evening. States that today he was lifting heavy bags and cleaning. States that his right index finger was cramping earlier, it is no longer cramping now, states it only lasted for short while. Denies any fevers, chest pain, shortness of air, abdominal pain. Past medical history includes chronic back pain and diabetes. He currently takes oxycodone, metformin, Lyrica, Topamax. Allergies and Home Medications Allergies Coded Allergies: No Known Drug Allergies (Unverified , 08/24/22) Patient Home Medication List Home Medication List Reviewed: Yes Amlodipine Besylate (Amlodipine Besylate) 2.5 Mg Tablet, (Reported) Entered as Reported by: LUCIA LANDA on 01/02/231927 Last Action: New Order Dulaglutide (Trulicity) 3 Mg/0.5 Ml Pen.injctr, (Reported) Entered as Reported by: LUCIA LANDA on 01/02/231927 Last Action: New Order Meloxicam (Meloxicam) 15 Mg Tablet, (Reported) Entered as Reported by: LUCIA LANDA on 01/02/231927 Last Action: New Order Metformin HCl (Metformin HCl) 850 Mg Tablet, (Reported) Entered as Reported by: LUCIA LANDA on 01/02/231927 Last Action: New Order Oxycodone HCl (Oxycodone HCl) 20 Mg Tablet, (Reported) Entered as Reported by: LUCIA LANDA on 01/02/231927 Last Action: New Order Oxycodone HCl (Oxycodone HCl) 15 Mg Tablet, (Reported) Entered as Reported by: LUCIA LANDA on 01/02/231927 Last Action: New Order Pregabalin (Pregabalin) 150 Mg Capsule, (Reported) Entered as Reported by: LUCIA LANDA on 01/02/231927 Last Action: New Order Topiramate (Topiramate) 50 Mg Tablet, (Reported) Entered as Reported by: LUCIA LANDA on 01/02/231927 Last Action: New Order [Albuterol] , (Reported) Entered as Reported by: LUCIA LANDA on 01/02/231927 Last Action: New Order Discontinued Medications Azithromycin (Azithromycin) 250 Mg Tablet, 250 MG PO UD Discontinued Reason: No Longer Taking Prescribed by: STEPHANIE WALLACE on 08/29/22307 Last Action: Discontinued Benzonatate (Tessalon Perles) 100 Mg Capsule, 200 MG PO Q8H Discontinued Reason: No Longer Taking Prescribed by: Benito Madden on 08/24/222133 Last Action: Discontinued Benzonatate (Tessalon Perles) 100 Mg Capsule, 200 MG PO TID PRN for COUGH Discontinued Reason: No Longer Taking Prescribed by: STEPHANIE WALLACE on 08/29/22307 Last Action: Discontinued Review of Systems Constitutional: see HPI Past Frkdezs-Jkhxsj-Dhyyln Hx Patient Social History Tobacco Use?: Yes Substance use?: No Alcohol Use?: No Pt feels they are or have been: No Immunizations Up To Date First/Initial COVID19 Vaccinat: X2 Second COVID19 Vaccination Brayan: 2020 Third COVID19 Vaccination Date: N/A Past Medical History Surgery/Hospitalization HX: back pain, dm, copd, HTN, LEFT HIP SX Surgeries: Yes (I&D OF ABSCESS ON BACK/BUTTOCKS) Respiratory: No Cardiac: Yes Hypertension Neurological: No Reproductive Disorders: No Genitourinary: No Gastrointestinal: No Musculoskeletal: Yes Chronic Back Pain Endocrine: Yes (OBESE) Diabetes, Non-Insulin dep HEENT: No Cancer: No Psychosocial: No Integumentary: Yes (I&D OF ABSCESS) Blood Disorders: No Family Medical History No Pertinent Family Hx Physical Exam Vital Signs Vital Signs - First Documented 01/02/23 19:22 Temp 35.8 Pulse 98 Resp 16 B/P (MAP) 108/71 (83) Pulse Ox 98 O2 Delivery Room Air Capillary Refill : Less Than 3 Seconds Height, Weight, BMI Height: '" Weight: lbs. oz. kg; 43.00 BMI Method: General Appearance: WD/WN, no apparent distress Neck: supple, normal inspection Cardiovascular: regular rate, rhythm, no edema, no gallop, no JVD, no murmur Respiratory: lungs clear, normal breath sounds, no respiratory distress, no accessory muscle use Back: normal inspection Hand: normal inspection, non-tender, no evidence of injury, normal ROM, Bilateral (Cap refill less than 2 seconds, sensation intact distally, no evidence of muscle cramping now, case monitor strength normal) Neurologic/Psychiatric: alert, normal mood/affect Skin: normal color, warm/dry Progress/Results/Core Measures Results/Orders Vital Signs/I&O 01/02/23 19:22 Temp 35.8 Pulse 98 Resp 16 B/P (MAP) 108/71 (83) Pulse Ox 98 O2 Delivery Room Air Blood Pressure Mean: 83 Progress Progress Note : Time: 19:43 Progress Note Patient seen and evaluated, resting comfortably in bed, no acute distress. Patient's hands appear normal, no evidence of injury, cap refill less than 2 seconds, sensation intact distally, normal case monitor strength. Hand is no longer cramping. Considered obtaining lab work, but deferred due to cramping only lasting for short of time, and not recurring. Discussed this with patient, he is okay with discharge at this time. Discharge orders return precautions provided. Departure Impression Primary Impression: Muscle cramp Disposition: 01 HOME, SELF-CARE Condition: Stable Departure-Patient Inst. Decision time for Depature: 19:38 Referrals: NO,LOCAL PHYSICIAN (PCP/Family) Primary Care Physician Patient Instructions: Muscle and Bone Pain (DC) Add. Discharge Instructions: Drink plenty water. Rest your hand tomorrow. The cramping in your hand was likely due to you lifting heavy bags today. Return for muscle cramping that persists, recurrent vomiting, or any other new, concerning, or worsening symptoms. All discharge instructions reviewed with patient and/or family. Voiced understanding. ROXANNA JAY APRN Jan 02, 2023 19:40
[2023-01-02 19:42] VITALS: BP 108/71
== END 2023-01-02 19:42 | disposition home or self-care (01) ==
LOC: EDUNIT# 19:15 → ER 19:18
DX: R25.2 Cramp and spasm (principal); G89.29 Other chronic pain; M54.9 Dorsalgia, unspecified; E11.9 Type 2 diabetes mellitus without complications; E66.9 Obesity, unspecified; Z68.41 Body mass index [BMI] 40.0-44.9, adult; Z79.84 Long term (current) use of oral hypoglycemic drugs; Z79.1 Long term (current) use of non-steroidal anti-inflammatories (NSAID); Z79.899 Other long term (current) drug therapy; X50.0XXA Overexertion from strenuous movement or load, initial encounter
CPT/HCPCS: 99281